=== PATIENT | male | born 1965 | race Hispanic/Latino ===

== ENCOUNTER 2017-11-26 09:48 | Emergency (ER) | payer SELFPAY ==
[2017-11-26 10:17] LABS: Bilirubin Negative (Negative); Blood, Urine Large (Negative); Clarity CLOUDY (Clear); Glucose, Urine (Dipstick) Negative (Negative); Leukocyte Negative (Negative); Nitrite Negative (Negative); Protein, Urine (Dipstick) Negative (Neg-Trace); Specific Gravity, Urine 1.028 (1.002-1.036); Urobilinogen 0.2 mg/dL (0.2-1.0); pH, Urine 5.5 (5.0-9.0)
[2017-11-26 10:19] LABS: Bacteria/HPF None Seen HPF (None Seen); Hyaline Casts/LPF 0-3 HYALINE CAST LPF (0-3 Hyaline); Pathc Cast-AUWi Flag 0.29 (0-2.49); RBC/HPF 0-3 HPF (0-3); Squamous Epithelial None Seen HPF (0-3)
[2017-11-26 10:20] LABS: #Lymphocytes 1.4 thou/uL (1.20-3.40); #Monocytes 0.8 thou/uL (0.11-0.59); #Neutrophils 7.6 thou/uL (1.40-6.50); %Basophils 0.1 % (0.0-1.0); %Eosinophils 0.4 % (0.0-10.0); %Lymphocytes 13.9 % (21.0-51.0); %Monocytes 8.2 % (0.0-10.0); %Neutrophils 77.3 % (42.0-75.0); Hemoglobin 15.9 g/dL (14.0-18.0); Mean Corpuscular HGB CONC 35.2 g/dL (32.0-36.0); Mean Corpuscular Hemoglobin 32.8 pg (27.0-31.0); Mean Corpuscular Volume 93.2 fL (78.0-98.0); Mean Platelet Volume 7.1 fL (7.4-10.4); Platelet Count 183 thou/uL (130-400); RBC Distribution Width 11.7 % (11.5-14.5); Red Blood Cell (RBC) Count 4.86 mill/uL (4.70-6.10); White Blood Cell (WBC) Count 9.8 thou/uL (4.8-10.8)
[2017-11-26 10:36] LABS: ALT (SGPT) 21 U/L (8-55); AST (SGOT) 20 U/L (5-34); Albumin 4.5 g/dL (3.5-5.0); Alkaline Phosphatase 62 U/L (40-150); Anion Gap 15 mmol/L (10-20); BUN (Urea Nitrogen) 19 mg/dL (8.9-20.6); Calc. Creatinine Clearance 0 mL/min (70-130); Calcium 9.1 mg/dL (7.8-10.44); Carbon Dioxide 21 mmol/L (22-29); Chloride 103 mmol/L (98-107); Estimated GFR-MDRD 60; Globulin 3.2 g/dL (2.4-3.5); Glucose 109 mg/dL (70-105); Potassium 4.5 mmol/L (3.5-5.1); Protein, Total 7.7 g/dL (6.0-8.3); Sodium 134 mmol/L (136-145)
[2017-11-26] MEDS ORDERED: Ondansetron HCl/PF 4 MG/2 ML Vial ONE (10:42)
[2017-11-26] MEDS ORDERED: Morphine 4 MG/ML VIAL ONE (10:45)
--- NOTE | 2017-11-26 11:10 | CT ---
CT OF ABDOMEN AND PELVIS PERFORMED WITHOUT CONTRAST ENHANCEMENT: History: Right flank pain. FINDINGS: The lung bases are clear. The liver, spleen, pancreas, and gallbladder regions appear unremarkable given the limitations of a n oncontrast exam. Right and left adrenal glands and right and left kidneys are normal in size. Tiny punctate nonobstruc ting left renal calculus is seen. There is also a punctate right renal calculus and a calculus locate d at the right ureteropelvic junction causing some mild right sided hydronephrosis. This calculus oliva sures approximately 6 mm in size. The ureter distal to this is nondilated. No significant periaortic or mesenteric adenopathy. CT OF PELVIS PERFORMED WITHOUT CONTRAST ENHANCEMENT: Minimal sigmoid diverticulosis is seen. Appendix is normal. No adenopathy or mass. IMPRESSION: Punctate bilateral renal calculi with a 6 mm right ureteropelvic junction calculus causing mild right sided hydronephrosis. POS: [facility]
== END 2017-11-26 13:16 | disposition home or self-care (01) ==
LOC: ERS 09:48
DX: N13.2 Hydronephrosis with renal and ureteral calculous obstruction (principal)
CPT/HCPCS: 36415; 74176; 80053; 81003; 81015; 83605; 85025; 87086; 94760; 96361; 96374; 96375; J2270; J2405

== ENCOUNTER 2017-12-02 10:18 | Outpatient (CLI) | payer SELFPAY ==
--- NOTE | 2017-12-03 07:33 | EKG ---
Test Reason : Blood Pressure : / mmHG Vent. Rate : 064 BPM Atrial Rate : 064 BPM P-R Int : 162 ms QRS Dur : 092 ms QT Int : 384 ms P-R-T Axes : 050 -22 012 degrees QTc Int : 396 ms Normal sinus rhythm Incomplete right bundle branch block Borderline ECG No previous ECGs available Confirmed by DR. Florentino GODDARD ([id number]) on 12/03/2017 7:32:58 AM Referred By: EARNEST Confirmed By:DR. Florentino GODDARD
== END 2017-12-02 10:19 | disposition home or self-care (01) ==
LOC: LABBT 10:18
PROVIDERS: ATTEND Urology
DX: Z01.810 Encounter for preprocedural cardiovascular examination (principal); N20.1 Calculus of ureter; Z87.442 Personal history of urinary calculi
CPT/HCPCS: 93005; 93010

== ENCOUNTER 2017-12-10 08:07 | Day surgery (SDC) | payer OTHER, SELFPAY ==
[2017-12-02 11:16] VITALS: BMI 27.1
[2017-12-10] MEDS ORDERED: Sodium Chloride 0.9% 100 ML ONE (08:14)
[2017-12-10] MEDS ORDERED: cefTRIAXone\\ROCEPHIN 1 GM VIAL ONE (08:14)
--- NOTE | 2017-12-10 08:57 | RAD ---
ABDOMEN ONE VIEW: History: Renal calculi. Pre-operative exam. Comparison: None. FINDINGS: Nonspecific bowel gas pattern. Double pigtail right ureteral stent is noted and appears to be appropr iately positioned. There appears to be a calcification projecting over the proximal right ureteral stent at approximatel y the L2 level measuring 7 mm. IMPRESSION: 7 mm calcification along the proximal right ureter. POS: [facility]
[2017-12-10] MEDS ORDERED: Iothalamate Meglumine 60% 50 ML VIAL FS ONE (10:31)
[2017-12-10] MEDS ORDERED: Midazolam HCl 2 mg/2 ml Vial ONE (10:34)
[2017-12-10] MEDS ORDERED: Fentanyl 100 MCG/2 ML VIAL ONE (10:34)
[2017-12-10] MEDS ORDERED: Levofloxacin 500 mg/D5W 100 ml Premix Bag ONE (10:48)
--- NOTE | 2017-12-10 12:33 | RAD ---
RETROGRADE UROGRAM: Date: 12-10-17 History: Placement of right ureteral stent. Comparison: 11-29-17 FINDINGS: Fluoroscopic imaging was performed for Dr. Rogers. Initial image demonstrates a right ureteral s tent in place with previously noted proximal right ureteral calculus at the L1-2 level. Subsequent im age does not demonstrate this calculus, and a right ureteral stent is in place. Correlation with intr aoperative findings is recommended. POS: [facility]
[2017-12-10] MEDS ORDERED: Phenazopyridine HCl 97.5 MG TABLET ONE (12:43)
[2017-12-10] MEDS ORDERED: HYDROcodone/Acetaminophen 5/325 mg Tablet ONE (13:03)
--- NOTE | 2017-12-10 14:55 | OP ---
DATE OF SERVICE: 12/10/2017 PREOPERATIVE DIAGNOSES: 1. A 52-year-old male with history of right proximal ureteral calculi just distal to the UPJ with hydronephrosis. 2. Bilateral punctate renal lithiasis. POSTOPERATIVE DIAGNOSES: 1. A 52-year-old male with history of right proximal ureteral calculi just distal to the UPJ with hydronephrosis. 2. Bilateral punctate renal lithiasis. PROCEDURE: Cystoscopy, right retrograde pyelogram, 6 x 26 double-J ureteral stent exchange on dangler, flexible ureteroscopy, pyeloscopy, laser lithotripsy of right ureteral stone, basket extraction of stone debris. SURGEON: Patito Rogers D.O. ANESTHESIA: General. COMPLICATIONS: None apparent. DISPOSITION: To recovery room in stable condition. SPECIMEN: Stone fragments for chemical analysis. INTRAOPERATIVE FINDINGS: 1. Right obstructing ureteral stone at the proximal ureter just distal to the UPJ. 2. Mild BPH. 3. Shaquille plaque consistent with recurrent stone former. SURGEON: Patito Rogers D.O. ANESTHESIA: Redundant. INDICATIONS FOR THE PROCEDURE AND HISTORY: Mr. Davis is a 52-year-old male who presented to the emergency room twice few weeks ago; therefore, underwent right stent placement due to proximal ureteral stone. The initial stent was somewhat difficult to pass as the stone appeared to be impacted, obstructed. He has tolerated the stent and presents today for ureteroscopy, laser lithotripsy. Risks and complications of the procedure as well as alternatives were reviewed with him in detail. As the stone is likely adherent, I informed the patient that ureteroscopy, laser lithotripsy would provide him a higher free rate of stone clearance. Risks and complications including, but not limited to, bleeding, pain, infection, injury to adjacent organs, urosepsis, ureteral renal injury, stricture formation, possible secondary procedure was reviewed with him in detail and he desired to proceed without reservation. DESCRIPTION OF THE PROCEDURE: After an informed consent is signed, the patient is taken to the operating room, placed in a dorsal lithotomy position with the genital area prepped and draped in the usual surgical sterile fashion. A 21- Slovenian cystoscope was utilized for cystoscopy. The anterior and posterior urethra was within normal limits. Mild BPH component was noted. Upon entering the bladder, the right ureteral stent was removed to the level of the meatus and a 0.35 sensor wire was placed through the stent to the right upper pole. At this time, a 10 Slovenian dual-lumen access sheath was passed and a retrograde pyelogram again demonstrated the right proximal ureteral stone with wire in proper position. A second safety wire, a 0.35 Super Stiff wire was passed through the dual lumen access sheath. Consistent with the prior evaluation, the stone appeared to be adherent at this level, I did have to require some manipulation to get a second wire up to the right upper pole. At this time, the dual-lumen access sheath was then removed and an 11/13-Slovenian x 46 cm navigator was passed. It was passed to the level of the proximal ureter at the level of L5, as there was some resistance at further pursuing it therefore I did not engage. The flexible ureteroscope was then advanced over the working safety wire to the level of the proximal ureter UPJ renal pelvis without difficulty. The area of the stone appeared to have some bullous edema consistent with an adherent obstructing stone at this level. The stone was then seen to the migrated into the right upper pole. Using 365 micron fiber at the setting, we laser lithotripsied the stone. The stone was very hard in nature. It broke into multiple tiny pieces. Those that were requiring basket extraction were retrieved. There what remained were dust-like stones. There is unable to be basketed, therefore he will most likely pass these tiny fragments. The ureter was surveyed which demonstrated no evidence of perforation. The initial wire appeared to have small submucosal course at the proximal ureter, therefore, I put a new wire into the right upper pole. The preexisting safety wire was then removed and a 6 x 26 double-J ureteral stent was passed without difficulty. As there is no stone nidus of concern, I did leave the stent on a dangler. This was taped to the patient's penis. Bladder was completely emptied and he tolerated the procedure well. He is discharged with ciprofloxacin until followup appointment, AZO, [place] 5/325, #40, Colace, Flomax 0.4 mg one p.o. daily. He will follow up with me next week for stent pull on dangler. [facility]
== END 2017-12-10 15:00 | disposition home or self-care (01) ==
LOC: SDC 08:07
PROVIDERS: ATTEND Urology
PROC: 0T768DZ Dilation of Right Ureter with Intraluminal Device, Via Natural or Artificial Opening Endoscopic (ICD-10-PCS; principal; 2017-12-10)
PROC: 0TF68ZZ Fragmentation in Right Ureter, Via Natural or Artificial Opening Endoscopic (ICD-10-PCS; principal; 2017-12-10)
DX: N13.2 Hydronephrosis with renal and ureteral calculous obstruction (principal); Z87.442 Personal history of urinary calculi
CPT/HCPCS: 74018; 74420; 82365; 88300; C1758; C1769; J0696; J1956; J2250; J3010; J7050; Q9961

== ENCOUNTER 2018-06-22 12:37 | Outpatient (CLI) | payer OTHER ==
--- NOTE | 2018-06-22 14:38 | RAD ---
KUB: DATE: 06/22/2018. COMPARISON: 12/10/2017. HISTORY: History of renal stone disease. FINDINGS: The prior study demonstrated a double-J ureteral stent on the right. Right double-J ureteral stent h as been removed. No obvious calcification overlies either renal shadow but assessment is somewhat li mited secondary to significant stool within the colon. The bowel gas pattern is appears nonobstructe d. IMPRESSION: No obvious renal calcification, although assessment is limited secondary to the degree of stool withi n the colon. CT of abdomen could be beneficial to evaluate for renal stone disease. POS: [facility]
--- NOTE | 2018-06-22 14:38 | ULT ---
RENAL ULTRASOUND: 06/22/2018 HISTORY: Renal stone disease. COMPARISON: None. TECHNIQUE: Multiplanar venegas-scale sonographic imaging of the kidneys and urinary bladder obtained. FINDINGS: The urinary bladder appears grossly unremarkable. The left kidney measures 11.3 x 5.2 x 6.1 cm, and the right kidney measures 11.3 x 7.1 x 6.0 cm. No hydronephrosis or mass lesion. There is no evidence for a large/discrete renal calculus on either side. IMPRESSION: 1. No discrete renal calculus identified. 2. Small stones may be nonvisualized via ultrasound, and CT abdomen may be beneficial, if clinically warranted. POS: [facility]
== END 2018-06-22 12:38 | disposition home or self-care (01) ==
LOC: ULT 12:37
PROVIDERS: ATTEND Urology
DX: N20.1 Calculus of ureter (principal); Z87.442 Personal history of urinary calculi
CPT/HCPCS: 74018; 76770

== ENCOUNTER 2019-08-17 14:25 | Outpatient (CLI) | payer OTHER ==
--- NOTE | 2019-08-17 14:52 | RAD ---
Abdomen one view HISTORY: Abdominal pain. Stones. COMPARISON: 06/22/2018. FINDINGS: Large amount of gas and stool throughout the colon, predominantly obscuring the renal outli hamzah. Small bowel gas pattern is nonspecific. Small phleboliths overlie the pelvis. No urinary tract calcifications are reliably demonstrated. IMPRESSION : No abnormalities are demonstrated.
== END 2019-08-17 14:26 | disposition home or self-care (01) ==
LOC: RAD 14:25
PROVIDERS: ATTEND Urology
DX: N20.0 Calculus of kidney (principal)
CPT/HCPCS: 74018

== ENCOUNTER 2019-08-20 21:50 | Emergency (ER) | payer OTHER, SELFPAY ==
[2019-08-20 22:19] LABS: #Lymphocytes 1.9 thou/uL (1.20-3.40); #Monocytes 0.6 thou/uL (0.11-0.59); #Neutrophils 8.4 thou/uL (1.40-6.50); %Basophils 0.3 % (0.0-1.0); %Eosinophils 0.2 % (0.0-10.0); %Lymphocytes 17.3 % (21.0-51.0); %Monocytes 5.2 % (0.0-10.0); Hemoglobin 17.3 g/dL (14.0-18.0); Mean Corpuscular HGB CONC 33.5 g/dL (32.0-36.0); Mean Corpuscular Hemoglobin 33.2 pg (27.0-31.0); Mean Corpuscular Volume 99.3 fL (78.0-98.0); Mean Platelet Volume 7.5 fL (7.4-10.4); Platelet Count 185 thou/uL (130-400); RBC Distribution Width 11.9 % (11.5-14.5); White Blood Cell (WBC) Count 10.9 thou/uL (4.8-10.8)
[2019-08-20 22:41] LABS: ALT (SGPT) 17 U/L (8-55); AST (SGOT) 14 U/L (5-34); Albumin 4.5 g/dL (3.5-5.0); Alkaline Phosphatase 94 U/L (40-110); Anion Gap 13 mmol/L (10-20); BUN (Urea Nitrogen) 8 mg/dL (8.4-25.7); Bilirubin, Total 0.8 mg/dL (0.2-1.2); Calc. Creatinine Clearance 0 mL/min (70-130); Calcium 9.2 mg/dL (7.8-10.44); Carbon Dioxide 26 mmol/L (22-29); Chloride 102 mmol/L (98-107); Estimated GFR-MDRD 89; Globulin 2.9 g/dL (2.4-3.5); Glucose 126 mg/dL (70-105); Lipase 20 U/L (8-78); Potassium 4.1 mmol/L (3.5-5.1); Protein, Total 7.4 g/dL (6.0-8.3); Sodium 137 mmol/L (136-145)
[2019-08-20] MEDS ORDERED: Mag-Al 1200 mg/1200 mg/30 ML UDCUP ONE (23:32)
[2019-08-20] MEDS ORDERED: Lidocaine Viscous Sol 2% 15 ml UD Cup ONE (23:32)
[2019-08-21 00:17] LABS: Bilirubin Negative (Negative); Blood, Urine Negative (Negative); Clarity Clear (Clear); Glucose, Urine (Dipstick) Normal (Negative); Leukocyte Negative Leu/uL (Negative); Nitrite Negative (Negative); Protein, Urine (Dipstick) 10 mg/dL (Neg-Trace); Urobilinogen Normal mg/dL (Less than 2)
== END 2019-08-21 00:34 | disposition home or self-care (01) ==
LOC: ERS 21:50
DX: R10.84 Generalized abdominal pain (principal); E78.5 Hyperlipidemia, unspecified; N40.0 Benign prostatic hyperplasia without lower urinary tract symptoms; Z79.899 Other long term (current) drug therapy
CPT/HCPCS: 36415; 80053; 81003; 83690; 85025; 99284

== ENCOUNTER 2020-12-13 13:41 | Outpatient (CLI) | payer OTHER | END 2020-12-13 13:42 | disposition home or self-care (01) | LOC: RAD 13:41 | PROVIDERS: ATTEND Urology | DX: Z87.442 Personal history of urinary calculi (principal) | CPT/HCPCS: 74018 ==

== ENCOUNTER 2021-12-19 12:44 | Outpatient (CLI) | payer SELFPAY ==
[2021-12-19 15:00] LABS: Bacteria/HPF None Seen HPF (None Seen); Bilirubin Negative (Negative); Blood, Urine Negative (Negative); Clarity Clear (Clear); Glucose, Urine (Dipstick) 500 mg/dL (Negative); Ketone, Urine Negative (Negative); Leukocyte Negative Leu/uL (Negative); Nitrite Negative (Negative); Protein, Urine (Dipstick) Negative (Neg-Trace); RBC/HPF 0-3 HPF (0-3); Specific Gravity, Urine 1.021 (1.002-1.036); Squamous Epithelial None Seen HPF (0-3); Urobilinogen Normal mg/dL (Less than 2); WBC/HPF 0-3 HPF (0-3)
[2021-12-19 15:03] LABS: Urine Culture Reflex No No
== END 2021-12-19 12:45 | disposition home or self-care (01) ==
LOC: RAD 12:44
PROVIDERS: ATTEND Urology
DX: Z12.5 Encounter for screening for malignant neoplasm of prostate (principal); N40.0 Benign prostatic hyperplasia without lower urinary tract symptoms; N20.0 Calculus of kidney
CPT/HCPCS: 74018; 81001; G0103

== ENCOUNTER 2023-01-13 13:42 | Outpatient (CLI) | payer OTHER | END 2023-01-13 13:43 | disposition home or self-care (01) | LOC: RAD 13:42 | PROVIDERS: ATTEND Urology | DX: N20.0 Calculus of kidney (principal) | CPT/HCPCS: 74018 ==

== ENCOUNTER 2024-11-15 10:46 | Outpatient (CLI) | payer OTHER | END 2024-11-15 10:47 | disposition home or self-care (01) | LOC: RAD 10:46 | PROVIDERS: ATTEND Urology | DX: N20.0 Calculus of kidney (principal); N28.89 Other specified disorders of kidney and ureter | CPT/HCPCS: 74018 ==